=== PATIENT | female | born 1995 | race Caucasian/White ===

== ENCOUNTER 2017-07-28 09:29 | Emergency (ER) | payer MEDICAID ==
[~2017-07-28] VITALS: Ht 154.9 cm; Wt 112.9 kg
[2017-07-28 09:34] VITALS: BP 122/59
[2017-07-28] MEDS ORDERED: MECLIZINE 25 MG TAB PO ONE (10:15)
[2017-07-28] MEDS ORDERED: ONDANSETRON 4 MG/2 ML VIAL IVP ONE (10:15)
[2017-07-28 10:39] LABS: APPEARANCE,URINE CLEAR (CLEAR); BILIRUBIN,URINE NEGATIVE (NEGATIVE); BLOOD, URINE 3+ (NEGATIVE); COLOR,URINE YELLOW (YELLOW); LEUKOCYTE ESTERASE ,URINE NEGATIVE (NEGATIVE); NITRITE, URINE NEGATIVE (NEGATIVE); UGLUCOSE NEGATIVE (NEGATIVE)
[2017-07-28 10:43] LABS: HEMATOCRIT 41.3 % (36-48); HEMOGLOBIN 13.7 g/dL (12.0-16.0); MEAN CORPUSCULAR HEMOGLOBIN 29 pg (27-31); MEAN CORPUSCULAR HGB CONC 33 g/dL (33-37); MEAN CORPUSCULAR VOLUME 88 fL (80-94); PLATELET COUNT (AUTO) 302 K/uL (140-450); RED BLOOD CELL COUNT(AUTO) 4.69 MIL/uL (4.20-5.40); RED CELL DISTRIBUTION WIDTH 12.4 % (11.6-13.7); WHITE BLOOD COUNT (AUTO) 8.6 K/uL (4.5-11.0)
[2017-07-28 10:52] LABS: ANION GAP 14.7 (8-16); CARBON DIOXIDE 23.5 mmol/L (21-32); CREATININE 0.7 mg/dL (0.6-1.3); POTASSIUM 4.2 mmol/L (3.5-5.1)
[2017-07-28 10:58] LABS: LYMPHOCYTES % (MANUAL) 21 % (20-46); MONOCYTES % (MANUAL) 9 % (5-12)
[2017-07-28 10:59] LABS: ALBUMIN 3.7 g/dL (3.4-5.0); TOTAL BILIRUBIN 0.5 mg/dL (0.0-1.0)
[2017-07-28 11:09] LABS: RBC,URINE 80-100 /HPF (0-5); WBC,URINE 6-15 (FEW) /HPF (0-5)
[2017-07-28 11:35] VITALS: BP 132/89
== END 2017-07-28 11:34 | disposition home or self-care (01) ==
LOC: MED 09:29
DX: R42 Dizziness and giddiness (principal); Z88.0 Allergy status to penicillin
CPT/HCPCS: 36415; 80053; 81001; 81025; 82150; 83690; 84703; 85025; 87086; 96374; 99284; J2405; J8597

== ENCOUNTER 2019-06-27 07:01 | Emergency (ER) | payer MEDICAID ==
[~2019-06-27] VITALS: Ht 152.4 cm; Wt 113.4 kg
[2019-06-27 07:15] VITALS: BP 124/79
--- NOTE | 2019-06-27 07:29 | NUR ---
PT AMB TO BED 3.
--- NOTE | 2019-06-27 07:37 | NUR ---
23 Y/O F C/C STOMACH PAIN X2 DAYS. PER PT S/S NAUSEA/VOMITING/CONSTIPATION. NOT TAKEN OTC MEDICATIONS. PAIN 8/. ALLERGIES PNC. NO HX. NO RX. BOWEL SOUNDS NORMOACTIVE. SIDE RAIL X1. FAMILY AT BEDSIDE.
[2019-06-27] MEDS ORDERED: ONDANSETRON 4 MG ODT PO ONE (07:45)
[2019-06-27 07:54] VITALS: BP 124/79
--- NOTE | 2019-06-27 07:54 | NUR ---
Patient discharged with v/s stable. Written and verbal after care instructions given and explained. Patient alert, oriented and verbalized understanding of instructions. Ambulatory with steady gait. All questions addressed prior to discharge. ID band removed. Patient advised to follow up with PMD. Rx of OMEPRAZOLE,ZOFRAN given. Patient educated on indication of medication including possible reaction and side effects. Opportunity to ask questions provided and answered.
== END 2019-06-27 07:54 | disposition home or self-care (01) ==
LOC: MED 07:01
DX: K59.00 Constipation, unspecified (principal); K21.9 Gastro-esophageal reflux disease without esophagitis; F12.10 Cannabis abuse, uncomplicated; Z88.0 Allergy status to penicillin
CPT/HCPCS: 81002; 81025; 99283; Q0162

== ENCOUNTER 2019-10-11 07:23 | Emergency (ER) | payer MEDICAID ==
[~2019-10-11] VITALS: Ht 154.9 cm; Wt 114.8 kg
[2019-10-11 07:39] VITALS: BP 119/79
--- NOTE | 2019-10-11 07:40 | NUR ---
23 Y/O FEMALE FROM HOME C/O LLQ PAIN, N/V/D X 3 DAYS. STATES 6/10 CONSTANT SHARP PAIN. ABD SOFT, ROUND, NONTENDER TO PALP. BOWEL SOUNDS PRESENT X 4 QUAD. LMP 10/02/2019. PT STATES SHE STARTED TAKING NEW CONTROL ON TUESDAY. RR EVEN AND UNLABORED, POSITIONED FOR COMFORT. X 1 SIDE RAIL RAISED BED LOCKED AND IN LOW POSITION MEDHX: DENIES ALLERGIES: PENICILLIN
--- NOTE | 2019-10-11 07:40 | NUR ---
Patient ambulated to bed 11. RN evaluating patient at bedside.
--- NOTE | 2019-10-11 07:42 | NUR ---
PT AMBULATED TO RESTROOM FOR COLLECTION OF URINE
--- NOTE | 2019-10-11 07:54 | NUR ---
DR CARVER AT BEDSIDE EXAMINING PT
--- NOTE | 2019-10-11 08:23 | NUR ---
Dr. Patino is evaluating the patient at bedside.
[2019-10-11] MEDS ORDERED: ONDANSETRON 4 MG ODT PO ONE (08:30)
[2019-10-11 08:44] VITALS: BP 119/79
--- NOTE | 2019-10-11 08:44 | NUR ---
Patient discharged with v/s stable. Written and verbal after care instructions given and explained. Patient alert, oriented and verbalized understanding of instructions. Ambulatory with steady gait. All questions addressed prior to discharge. ID band removed. Patient advised to follow up with PMD. Rx of Zofran 4mg and Lomotil 2.5mg given. Patient educated on indication of medication including possible reaction and side effects. Opportunity to ask questions provided and answered.
== END 2019-10-11 08:44 | disposition home or self-care (01) ==
LOC: MED 07:23
DX: R11.2 Nausea with vomiting, unspecified (principal); R19.7 Diarrhea, unspecified; F12.90 Cannabis use, unspecified, uncomplicated; Z88.0 Allergy status to penicillin
CPT/HCPCS: 81002; 81025; 99283; Q0162